=== PATIENT | female | born 1945 | race Caucasian/White ===

== ENCOUNTER 2017-01-07 09:38 | Outpatient (CLI) | payer MEDICARE, OTHER ==
[2017-01-07 10:31] LABS: eGFR (African) > 60; eGFR (Non-African) > 60
== END 2017-01-07 09:40 ==
LOC: LAB 09:38
PROVIDERS: ATTEND Family Medicine
DX: E78.2 Mixed hyperlipidemia (principal); E11.9 Type 2 diabetes mellitus without complications; E03.9 Hypothyroidism, unspecified
CPT/HCPCS: 36415; 80053; 80061; 83036; 84443

== ENCOUNTER 2017-01-12 09:04 | Outpatient (CLI) | payer MEDICARE, OTHER | END 2017-01-12 09:05 | LOC: RAD 09:04 | PROVIDERS: ATTEND Family Medicine | DX: Z78.0 Asymptomatic menopausal state (principal) | CPT/HCPCS: 77080 ==

== ENCOUNTER 2017-05-28 09:47 | Outpatient (CLI) | payer MEDICARE, OTHER ==
[2017-05-28 10:07] LABS: BASOPHILS % 0.4 (0.0-1.5); EOSINOPHILS % 2.8 % (0.0-6.8); MEAN CORPUSCULAR HEMOGLOBIN 30.3 pg (28.0-34.0); MEAN CORPUSCULAR VOLUME 90.4 fl (80.0-100.0); MONOCYTES % 3.8 % (0.0-11.0); NEUTROPHILS # 4.6 # k/uL (1.4-7.7)
[2017-05-28 10:45] LABS: eGFR (African) > 60; eGFR (Non-African) > 60
--- NOTE | 2017-05-28 11:00 | Diagnostic Imaging Report ---
PARAMJIT BAILEY [facility] [address] [facility] [address] [place], [place]. [address] Report Submission Date: May 28, 2017 10:25:57 AM ROOF BOLTER Patient Study Name: GILMAR CARRILLO Date: May 28, 2017 9:59:58 AM ROOF BOLTER Modality Type: CT\SR Gender: F Description: CT BRAIN W/O CONTRAST : 45 Institution: [facility] Physician: PARAMJIT BAILEY Examination: CT head without contrast History: Headache Comparison exam: None available Technique: Noncontrast head CT protocol. Findings: Ventricles and sulci are consistent for patient age. Cerebrocerebellar parenchyma demonstrates periventricular low attenuation consistent with small vessel disease. 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 No evidence for parenchymal hemorrhage. No evidence for mass or mass effect. No midline shift. No extra axial fluid collections. Partial visualization of the paranasal sinuses, mastoid air cells, orbits, skull and scalp without gross irregularity. Impression: Age related changes. No acute parenchymal process. No hemorrhage. Electronically signed on May 28, 2017 10:25:57 AM ROOF BOLTER by: Valentin MARINO
--- NOTE | 2017-05-28 11:00 | Diagnostic Imaging Report ---
PARAMJIT BAILEY [facility] [address] [facility] [address] Report Submission Date: May 28, 2017 10:57:03 AM DATA CONVERSION OPERATOR Patient Study Name: GILMAR CARRILLO Date: May 28, 2017 10:10:27 AM DATA CONVERSION OPERATOR Modality Type: US Gender: F Description: DPLX SCN XTRCRAN ART CMP ZO : 45 Institution: [facility] Physician: PARAMJIT BAILEY Examination: Carotid artery ultrasound History: Syncope Comparison exams: None available Findings: Right carotid: Common carotid artery peak systolic velocity 109.4 cm/s; end diastolic velocity 19.7 cm/s. Internal carotid artery peak systolic velocity 66.9 cm/s; end diastolic velocity 19.7 cm/s. External carotid artery velocity to 119.0 cm/s. Vertebral artery velocity 39.2 cm/s Vertebral flow antegrade. Normal waveforms. No occlusive plaquing. Left carotid: Common carotid artery peak systolic velocity 149.7 cm/s; end diastolic velocity 23.5 cm/s. Internal carotid artery peak systolic velocity 85.8 cm/s; end diastolic velocity 21.9 cm/s. External carotid artery velocity to 93.1 cm/s. Vertebral artery velocity 67.7 cm/s Vertebral flow antegrade. Normal waveforms. No occlusive plaquing. Right ICA/CCA Ratio: 0.6 Left ICA/CCA Ratio 0.6 Impression: Carotids ratios not elevated. No restriction to hemodynamic flow. Electronically signed on May 28, 2017 10:57:03 AM DATA CONVERSION OPERATOR by: Valentin MARINO
== END 2017-05-28 12:19 ==
LOC: RAD 09:47
PROVIDERS: ATTEND Family Medicine
DX: G45.9 Transient cerebral ischemic attack, unspecified (principal); R41.0 Disorientation, unspecified
CPT/HCPCS: 36415; 70450; 80053; 85025; 93880

== ENCOUNTER 2017-12-09 14:14 | Outpatient (CLI) | payer MEDICARE, OTHER ==
--- NOTE | 2017-12-09 14:48 | Diagnostic Imaging Report ---
PARAMJIT BAILEY [facility] [address] [facility] [address] [address] Report Submission Date: Dec 09, 2017 2:39:07 PM CDT Patient Study Name: GILMAR CARRILLO Date: Dec 09, 2017 2:17:24 PM CDT Modality Type: DX Gender: F Description: LOWER EXTREMITY : 45 Institution: [facility] Physician: PARAMJIT BAILEY Examination: Plain film knees History: CHRONIC LEFT KNEE PAIN, HX OF RIGHT KNEE REPLACEMENT (Hx) Findings: Single standing views of the knees demonstrates right knee prosthesis. Left knee tibial spine spurring with medial joint space narrowing. No fracture. No loosening. Impression: Advanced left knee degenerative changes. Right knee prosthesis. Electronically signed on Dec 09, 2017 2:39:07 PM CDT by: Valentin MARINO
--- NOTE | 2017-12-09 14:49 | Diagnostic Imaging Report ---
PARAMJIT BAILEY [facility] [address] [facility] [address] [address] Report Submission Date: Dec 09, 2017 2:43:01 PM CDT Patient Study Name: GILMAR CARRILLO Date: Dec 09, 2017 2:20:49 PM CDT Modality Type: DX Gender: F Description: LOWER EXTREMITY : 45 Institution: [facility] Physician: PARAMJIT BAILEY Examination: Plain film left knee History: CHRONIC LEFT KNEE PAIN (Hx) Findings: 3 views of the left knee demonstrates tibial spine and patellar spurring. Medial joint space narrowing. No dislocation. No joint effusion. No soft tissue irregularity. Impression: Moderate to advanced degenerative changes. Electronically signed on Dec 09, 2017 2:43:01 PM CDT by: Valentin MARINO
== END 2017-12-09 14:15 ==
LOC: RAD 14:14
PROVIDERS: ATTEND Family Medicine
DX: M25.562 Pain in left knee (principal)
CPT/HCPCS: 73562; 73565

== ENCOUNTER 2018-02-11 08:42 | Outpatient (CLI) | payer MEDICARE, OTHER ==
[2018-02-11 11:32] LABS: eGFR (Non-African) > 60
== END 2018-02-11 08:43 ==
LOC: LAB 08:42
PROVIDERS: ATTEND Family Medicine
DX: E11.9 Type 2 diabetes mellitus without complications (principal)
CPT/HCPCS: 36415; 80053; 80061; 83036; 84443

== ENCOUNTER 2018-06-21 08:14 | Day surgery (SDC) | payer OTHER ==
[2018-06-21] MEDS ORDERED: PROPOFOL 200 MG/20 ML VIAL IV ONE (08:48)
[2018-06-21] MEDS ORDERED: LACTATED RINGERS 1,000 ML IV.SOLN IV ONE (08:48)
--- NOTE | 2018-06-21 10:41 | GI Report ---
REFERRING PHYSICIAN: Dr. Jacki Miller APPLE PRESS OPERATOR: Alexis Armstrong MD PROCEDURE MEDICATION: Propofol as per anesthesia. INDICATIONS: This is a 72-year-old woman whose father of colon cancer at 64. She denies any change in bowel habits. She is a high-risk screening. She is a diabetic and has had a previous cholecystectomy. She is 5 feet 2 inches and weighs 230 pounds and carries that weight centrally. She is referred for a colonoscopy because of high risk screening. PROCEDURE PERFORMED: Colonoscopy. PROCEDURE: An Olympus video colonoscope was advanced to the rectum. She does have diverticular disease, moderate, in the sigmoid colon and descending colon. The colonoscope was advanced to the cecum, though it took some nurse compression. She has a very atonic redundant colon. The appendiceal orifice and ileocecal valve looked normal. On slow withdrawal, the cecum, ascending colon, and transverse colon with no obvious intraluminal lesions noted. The descending colon and sigmoid with scattered diverticula and redundancy. No obvious intraluminal lesions were noted. Retroflexion of the rectum was normal. Patient tolerated the procedure well. FINDINGS: 1. Moderate diverticular disease of the sigmoid and descending colon. 2. An atonic redundant colon. 3. Central obesity. RECOMMENDATIONS: 1. Increase fiber in her diet such as Metamucil or Benefiber. 2. Would cut out the white carbohydrates which are just excess calories. 3. Increase fruits and vegetables. 4. Consider re-looking at her colon in 5 years. cc: Dr. Jacki MARINO
== END 2018-06-21 10:08 ==
LOC: OPSURG 08:14
PROVIDERS: ATTEND Internal Medicine Gastroenterology
DX: Z12.11 Encounter for screening for malignant neoplasm of colon (principal); K57.30 Diverticulosis of large intestine without perforation or abscess without bleeding; K59.8 Other specified functional intestinal disorders; E66.9 Obesity, unspecified; Z80.0 Family history of malignant neoplasm of digestive organs
CPT/HCPCS: G0105; J2704; J7120; S1016

== ENCOUNTER 2019-02-08 09:52 | Outpatient (CLI) | payer OTHER ==
[2019-02-08 11:11] LABS: HDL 52 mg/dL (>40); eGFR (Non-African) > 60
== END 2019-02-08 09:54 ==
LOC: LAB 09:52
PROVIDERS: ATTEND Family Medicine
DX: E78.2 Mixed hyperlipidemia (principal)
CPT/HCPCS: 36415; 80053; 80061; 84443